=== PATIENT | female | born 1960 | race Caucasian/White ===

== ENCOUNTER 2017-04-24 19:26 | Emergency (ER) | payer MEDICARE ==
[~2017-04-24] VITALS: Ht 162.6 cm; Wt 63.0 kg
[2017-04-24 21:19] VITALS: BP 120/69
== END 2017-04-24 21:40 | disposition home or self-care (01) ==
LOC: EMS 19:28
DX: S00.83XA Contusion of other part of head, initial encounter (principal); Z88.0 Allergy status to penicillin; W22.8XXA Striking against or struck by other objects, initial encounter; Y93.01 Activity, walking, marching and hiking; Y92.098 Other place in other non-institutional residence as the place of occurrence of the external cause; Y99.8 Other external cause status
CPT/HCPCS: 99281